=== PATIENT | female | born 1990 | race Caucasian/White ===

== ENCOUNTER 2021-01-11 17:01 | Emergency (ER) | payer MEDICAID ==
[~2021-01-11] VITALS: Ht 165.1 cm; Wt 86.0 kg
[2021-01-11] MEDS ORDERED: ACETAMINOPHEN 325MG TABLET PO STA (17:52)
[2021-01-11 18:17] LABS: BASOPHILS % 0.8 % (0.0-2.0); EOSINOPHILS % 0.6 % (0.0-5.0); HEMOGLOBIN. 12.5 g/dL (12.0-16.0); LYMPHOCYTES % 10.8 % (20.0-50.0); MEAN CORPUSCULAR HEMOGLOBIN 29.1 pg (28.0-32.0); MEAN CORPUSCULAR VOLUME 86.4 fL (81.0-99.0); MEAN PLATELET VOLUME 8.3 fl (7.4-10.4); MONOCYTES % 7.1 % (2.0-8.0); NEUTROPHILS % 80.7 % (40.0-76.0); PLATELET 308 x1000/uL (130-400); RED BLOOD CELL COUNT 4.29 mill/uL (4.2-5.4); RED CELL DISTRIBUTION WIDTH 14.3 % (11.6-14.6)
[2021-01-11 18:19] LABS: CLARITY URINE CLEAR (CLEAR); COLOR URINE YELLOW (YELLOW); KETONES URINE TRACE (NEGATIVE); LEUKOCYTE ESTERASE URINE NEGATIVE (NEGATIVE); NITRITE URINE NEGATIVE (NEGATIVE); OCCULT BLOOD URINE NEGATIVE (NEGATIVE); PROTEIN URINE 2+ (NEGATIVE); SPECIFIC GRAVITY URINE 1.026 (1.005-1.030); UROBILINOGEN URINE 0.2 E.U./dL (0.2-1.0)
[2021-01-11 18:22] LABS: CHLORIDE 106 mEq/L (98-107)
[2021-01-11] MEDS ORDERED: NITR-87 MT (19:01)
[2021-01-11 19:15] LABS: B-HCG QUANTITATIVE 84288 mIU/mL (<3)
[2021-01-11 19:52] VITALS: BP 129/79
== END 2021-01-11 19:58 | disposition home or self-care (01) ==
LOC: ER 17:01
DX: R82.71 Bacteriuria (principal); Z86.59 Personal history of other mental and behavioral disorders
CPT/HCPCS: 36415; 76801; 80053; 81003; 81025; 84702; 85025; 86850; 86900; 99284

== ENCOUNTER 2021-01-25 21:00 | Emergency (ER) | payer MEDICAID ==
[~2021-01-25] VITALS: Ht 165.1 cm; Wt 75.0 kg
[~2021-01-25 21:00] MED LIST: NITR-87 MT
[2021-01-25] MEDS ORDERED: HYDR453.3 TP (23:05)
[2021-01-25] MEDS ORDERED: HYDROCORTISONE 2.5% CREAM 20GM TOP SCH (23:15)
[2021-01-25 23:55] VITALS: BP 131/61
[2021-01-26] MEDS ORDERED: HYDROCORTISONE 2.5% OINT 20GM TOP SCH
== END 2021-01-25 23:56 | disposition home or self-care (01) ==
LOC: ER 21:51
DX: O26.891 Other specified pregnancy related conditions, first trimester (principal); T78.40XA Allergy, unspecified, initial encounter; X58.XXXA Exposure to other specified factors, initial encounter; Z3A.13 13 weeks gestation of pregnancy
CPT/HCPCS: 99283